=== PATIENT | male | born 1970 | race Two or more races ===

== ENCOUNTER 2017-12-04 06:20 | Day surgery (SDC) | payer BC ==
--- NOTE | 2017-12-03 15:17 | Pre-Procedure Note/Attestation ---
Pre-Procedure Note/Attestation Complete Prior to Procedure Planned Procedure: left Procedure Narrative: phaco with IOL, Indications for Procedure Pre-Operative Diagnosis: cataract Attestation I attest that I discussed the nature of the procedure; its benefits; risks and complications; and alternatives (and the risks and benefits of such alternatives ), prior to the procedure, with the patient (or the patient's legal retail customer service representative). I attest that, if there was a reasonable possibility of needing a blood transfusion, the patient (or the patient's legal retail customer service representative) was given the [facility] standardized written summary, pursuant to the [place] Blood Safety Act ([place] Health and Safety Code # 1645, as amended). I attest that I re-evaluated the patient just prior to the surgery and that there has been no change in the patient's H&P, except as documented below: AGATHA DOVER Dec 03, 2017 15:17
--- NOTE | 2017-12-03 15:35 | Opthalmology H&P ---
Ophthalmology H&P H&P Chief Complaint: decreased vision in left eye HPI Vision Affects Ability to: read, focus/use eyes together, manage personal affairs HPI Narrative blurry vision Exam Visual Acuity: OD: CF OS: HM Tension: OD: 14 OS: 17 Eye Exam: normal OU: external exam, palpebral fissure-width, marginal reflex distance, levator function, corneas, anterior chambers, findings: lens - OD: ns OS: dense catraact Assessment/Plan Diagnosis: (1) Cataract, mature Attestation Attestation The risks and benefits of the surgery as well as alternative procedures were explained to the patient in detail. AGATHA DOVER Dec 03, 2017 15:35
[2017-12-04] VITALS (9 sets, daily range): BP systolic 116–156; BP diastolic 70–91
[~2017-12-04] VITALS: Ht 157.5 cm; Wt 63.5 kg
[~2017-12-04 06:20] MED LIST: METFORMIN HCL1000 M1 ORAL
[2017-12-04] MEDS ORDERED: Sterile Water Irrig 1000ml IRRIG ONE ×2 (07:00→12:30)
[2017-12-04] MEDS ORDERED: Tetracaine 0.5% Opth 4ml Soln LEFT EYE ONE (07:00)
[2017-12-04] MEDS ORDERED: EPINEPHrine 1mg/1ml Amp ONE (07:00)
[2017-12-04] MEDS ORDERED: Dexamethasone 4mg/ml vial ONE (07:00)
[2017-12-04] MEDS ORDERED: Proparacaine 0.5% Opth Soln 15ml LEFT EYE ONE (07:00)
[2017-12-04] MEDS ORDERED: Maxitrol Opth Oint 3.5gm ONE (07:00)
[2017-12-04] MEDS ORDERED: Akten 3.5% 1ml Btl LEFT EYE ONE (07:00)
[2017-12-04] MEDS ORDERED: BSS 500ml btl ONE (07:00)
[2017-12-04] MEDS ORDERED: Pred Forte 1% Opth Susp 1ml ONE (07:00)
[2017-12-04] MEDS: Ketorolac Tromethamine Opth 5ml Soln LEFT EYE SCH ×3 (09:39→09:54)
[2017-12-04] MEDS: Tobramycin Op Soln 0.3% 5ml LEFT EYE SCH ×3 (09:39→09:54)
[2017-12-04] MEDS: Phenylephrine 10% Opth Soln 5ml LEFT EYE SCH ×3 (09:39→09:54)
[2017-12-04] MEDS: Cyclopentolate 1% Opth Sol 2ml LEFT EYE SCH ×3 (09:40→09:55)
[2017-12-04] MEDS: Tropicamide 1% Opth 15ml Soln LEFT EYE SCH ×3 (09:40→09:55)
[2017-12-04] MEDS ORDERED: fentaNYL 100 mcg/2 mL IV ONE (12:30)
[2017-12-04] MEDS ORDERED: Midazolam 2mg/2ml Inj ONE (12:30)
[2017-12-04] MEDS ORDERED: LR 1000ml ONE (12:30)
[2017-12-04] MEDS ORDERED: NS Irrig 1000ml ONE (12:30)
--- NOTE | 2017-12-04 12:45 | Anethesia Preoperative Eval ---
Anesthesia Pre-op PMH/ROS General Date of Evaluation: Dec 04, 2017 Time of Evaluation: 12:27 Anesthesiologist: Armando ASA Score: ASA 1 Mallampati Score Class I : Soft palate, uvula, fauces, pillars visible Class II: Soft palate, uvula, fauces visible Class III: Soft palate, base of uvula visible Class IV: Only hard plate visible Mallampati Classification: Class I Surgeon: Winnie Diagnosis: left eye cataract Surgical Procedure: left eye cataract removal with IOL Anesthesia History: none Family History: no anesthesia problems Allergies: Coded Allergies: No Known Allergies (Unverified , 12/04/17) Medications: see eMAR Past Medical History Cardiovascular: Denies: HTN, CAD, NE, valve dz, arrhythmia, other Pulmonary: Denies: asthma, COPD, SALMA, other Gastrointestinal/Genitourinary: Reports: other - circumcision 2010 Neurologic/Psychiatric: Denies: dementia, CVA, depression/anxiety, TIA, other Endocrine: Reports: DM - BS 134 HEENT: Reports: cataract (L) Hematology/Immune: Denies: anemia, DVT, bleeding disorder, other Musculoskeletal/Integumentary: Denies: OA, RA, DJD, DDD, edema, other Anesthesia Pre-op Phys. Exam Physician Exam Last Vital Signs Date Time Temp Pulse Resp B/P (MAP) Pulse Ox O2 Delivery O2 Flow Rate FiO2 12/04/17 09:51 97.7 64 18 148/91 100 Room Air Constitutional: NAD Neurologic: CN 2-12 intact Cardiovascular: RRR Respiratory: CTA Gastrointestinal: S/NT/ND Airway Exam Mallampati Score: Class I MO: full ROM: full Teeth: intact Anesthesia Pre-op A/P Labs chart reviewed Accucheck FBS = 134 this am Studies Pre-op Studies: EKG - supraventicular arrhythima at times but NSR Risk Assessment & Plan Assessment: A&Ox4 Plan: MAC Status Change Before Surgery: No Pre-Antibiotics Given Within 1 Hr of Incision: Fouzia Olson CRNA Dec 04, 2017 12:45
--- NOTE | 2017-12-04 12:47 | 48 Hour Post Anesthesia Eval ---
Post Anesthesia Evaluation Procedure: left eye cataract removal IOL Date of Evaluation: Dec 04, 2017 Time of Evaluation: 13:18 Blood Pressure Systolic: 155 0: 82 Pulse Rate: 64 Respiratory Rate: 15 Temperature (Fahrenheit): 97.8 O2 Sat by Pulse Oximetry: 98 Airway: patent Nausea: No Vomiting: No Pain Intensity: 0 Hydration Status: adequate Mental Status/LOC: patient returned to baseline Follow-up care needed: patient intructions given Fouzia Roberts CRNA Dec 04, 2017 12:47
--- NOTE | 2017-12-04 12:47 | Immediate Post-Op Evaluation ---
Immediate Post-Op Evalulation Immediate Post-Op Evalulation Procedure: left eye cataract removal IOL Date of Evaluation: Dec 04, 2017 Time of Evaluation: 13:11 IV Fluids: LR 500 ml Blood Products: 0 Estimated Blood Loss: 0 Urinary Output: 0 Blood Pressure Systolic: 156 Blood Pressure Diastolic: 86 Pulse Rate: 63 Respiratory Rate: 14 O2 Sat by Pulse Oximetry: 97 Temperature (Fahrenheit): 97.5 Pain Score (1-10): 0 Nausea: No Vomiting: No Patient Status: awake, reacts Hydration Status: adequate Given Within 1 Hr of Incision: Fouzia Olson CRNA Dec 04, 2017 12:47
[2017-12-04] MEDS ORDERED: Sodium Hyaluronate 10 mg/ml 0.85ml ONE (13:52)
--- NOTE | 2017-12-07 09:15 | Brief Operative Note ---
Immediate Post Operative Note Operative Note Chief Complaint: blurry vision Pre-op Diagnosis: cataract, OS Procedure: phaco with IOL, OS Post-op Diagnosis: pseudophakia Post-op Diagnosis: same as pre-op Findings: consistent w/pre-op dx studies Surgeon: Winnie Anesthesiologist: Armando Anesthesia: MAC Specimen: none Complications: none Condition: stable Fluids: LR Estimated Blood Loss: none Drains: none Implant(s) used?: Yes AGATHA DOVER Dec 07, 2017 09:15
--- NOTE | 2017-12-07 09:17 | Operative Note - PDOC ---
Operative Note Operative Note Date of Operation/Procedure: Dec 04, 2017 Chief Complaint: blurry vision Pre-op Diagnosis: cataract, OS Procedure: phaco with IOL, OS Post-op Diagnosis: pseudophakia Post-op Diagnosis: same as pre-op Operative Findings: consistent w/pre-op dx studies Surgeon: Winnie Anesthesiologist: Armando Anesthesia: MAC Specimen: none Complications: none Condition: stable Fluids: LR Estimated Blood Loss: none Drains: none Implant(s) used?: Yes Indications for Procedure cataract Description of Procedure This patient has been complaining visually significant cataract in the affected eye with the best corrected visual acuity under moderate glare conditions worse. The patient complains of difficulties with glare in performing activities of daily living and wants to manage personal affairs with comfort and accuracy and see well enough to move with safety at home and outdoors. The risks, benefits and alternatives of the procedure were discussed with the patient in the office prior to scheduling surgery. All questions from the patient were answered after the surgical procedure was explained in detail. The risks of the procedure as explained to the patient include, but are not limited to, pain, infection, bleeding, loss of vision, retinal detachment, need for further surgery, loss of lens nucleus, double vision, etc. Alternative procedures were discussed which include, to do nothing or seek a second opinion. Informed consent for this procedure was obtained from the patient. The patient was referred to a primary care physician for a cardiopulmonary clearance prior to surgery, after proper evaluation was done patient was properly scheduled for outpatient surgery. The patient was brought to the operating room where the anesthesiologist established I.V. lines and cardiac monitoring leads. Mild intravenous sedation was administered. The patient was then prepared with a 5% solution of povidone -iodine to the conjunctival fornix and lashes, and a 5% solution of povidone- iodine to the lids and periorbital skin. The patient was then draped in the usual sterile fashion. A lid speculum was then placed in the operative eye. A keratome blade was then used to create a biplanar incision into the anterior chamber. Viscoelastics was then instilled into the anterior chamber. A capsulorrhexis was then fashioned with an utrata forceps followed with hydrodissection and hydro delineation of the lens nucleus with a G 27 cannula. Paracentesis incision was made at 3 o'clock with sharp blade. The phacoemulsification unit, after being properly adjusted and tested, was then used to emulsify the nucleus then residual cortical material was aspirated with the irrigation and aspiration unit. Healon was then instilled into the anterior chamber. The corneal wound was then enlarged to the size of the optic with the jam keratome blade. The intraocular lens was then inspected for right power and size and thought to be satisfactory. Then the lens was gently placed in the capsular bag. Positioning within the capsular bag was confirmed by direct visualization. Optic centration was accomplished with a [place] hook. Viscoelastics was removed from the anterior chamber using the irrigation and aspiration unit. The corneal wound was then tested for leaks and none were found. The lid speculum were then removed. Sponge and needle counts were correct. An eye patch and shield were placed over the operative eye. The patient was taken to the recovery room in stable condition. There were no complications. The patient tolerated the procedure well. The patient was then transferred to the ambulatory surgery unit in stable and satisfactory condition , was given detailed written instructions and asked to follow up in the office the next day. AGATHA DOVER Dec 07, 2017 09:17
== END 2017-12-04 14:35 | disposition home or self-care (01) ==
LOC: SUR 06:20
DX: H25.89 Other age-related cataract (principal); E11.9 Type 2 diabetes mellitus without complications; I49.9 Cardiac arrhythmia, unspecified; E78.5 Hyperlipidemia, unspecified; Z79.84 Long term (current) use of oral hypoglycemic drugs
CPT/HCPCS: 66984; 82962; J0171; J1100; J2250; J3010; J3370; J7120; V2632; 94003; 94150